=== PATIENT | female | born 1985 | race Caucasian/White ===

== ENCOUNTER 2022-07-11 13:15 | Outpatient (CLI) | payer OTHER, SELFPAY ==
[2022-07-11 15:37] LABS: Chloride* 104 mmol/L (96-114)
[2022-07-11 15:38] LABS: Albumin* 4.4 g/dL (3.3-5.0)
[2022-07-11 15:39] LABS: Sodium* 139 mmol/L (135-149); Vitamin D 25 Hydroxy* 37 ng/mL (30-80)
[2022-07-11 15:41] LABS: Alkaline Phosphatase* 65 U/L (40-150); Aspartate Amino Transferase* 19 U/L (12-35); Bilirubin Total* 0.7 mg/dL (0.1-1.5); Blood Urea Nitrogen* 11 mg/dL (5-24); Carbon Dioxide* 28 mmol/L (20-32); Cholesterol* 158 mg/dL (90-199); Creatinine* 0.6 mg/dL (0.5-1.5); Estimated Glomerular Filt Rate 118 ml/min; Glucose* 91 mg/dL (60-115); Total Protein* 7.1 g/dL (6.0-8.3)
[2022-07-11 15:42] LABS: Alanine Aminotransferase* 11 U/L (4-35); Calcium* 9.3 mg/dL (8.4-10.6); HDL Cholesterol* 55 mg/dL (>=50); LDL Cholesterol Calculated 80 mg/dL (<100); Magnesium* 1.9 mg/dL (1.5-2.6); Triglycerides* 116 mg/dL (40-149)
[2022-07-11 16:15] LABS: Vitamin B12* 389 pg/mL (243-894)
== END 2022-07-11 13:16 | disposition home or self-care (01) ==
PROVIDERS: PCP Physician Assistant Medical; Visit Provider Family Medicine
DX: Z00.00 Encounter for general adult medical examination without abnormal findings (principal); F32.A Depression, unspecified; R53.83 Other fatigue; I10 Essential (primary) hypertension
CPT/HCPCS: 80053; 80061; 82306; 82607; 83735; 84443

== ENCOUNTER 2024-05-26 11:40 | Outpatient (CLI) | payer BC, SELFPAY ==
--- OUTSIDE RECORDS SUMMARY | 2024-05-26 11:42 | XMS_ITS | Clinical Summary ---
Author Organization [facility] Address [place], [place] [address] Care Team Providers Care Fruit Rancher Name Role Phone [facility] Primary Care Provider Unavailabl e Allergies No known active allergies Medications Medication Sig Dispensed Refills Start Date End Date Status MULTIPLE VITAMINS TAB take 1 tablet by oral route once daily with food 0 01/16/2007 Active ALDARA 5 % TOPICAL PACKET apply to affected area(s) by topical route3- 5 times per week 1 tube 0 01/16/2007 Active NUVARING 0.12 MG -0.015 MG/24 HR VAGINALIndications:Othe r general counseling and advice for contraceptive management Apply 1 ring, leave in for 3 weeks then remove 9 rings 3 01/18/2008 Active Active Problems Problem Noted Date Diagnosed Date CONTRACEPTIVE MANAGEMENT 04/13/2002 ACNE NEC 10/19/2001 ALLERGIES 10/19/2001 Immunizations Name Administration Dates Next Due Hepatitis B (Peds) 01/15/2000,12/08/1999 MMR 12/22/1996 Meningococcal Vaccine 01/19/2003 Oral Polio Vaccine 09/22/1989 Td (Age >=7 Years) 01/26/1996 Tuberculin (PPD) 03/29/2005 Family History Medical History Relation Name Comments Heart Disease Maternal Grandmother Other Maternal Grandmother bladder cancer, DVTs Genetic Other GM: bladder CA~ GP: CAD~GP: aneurysm, brain/GM: bladder CA~GP: CAD~GP: aneurysm, brain~arthritis/father A\T\W~mother A\T\W~brother A\T\W~GM: bladder CA, HTN~GP: CAD< CA uncertain type~GP: aneurysm, brain~maternal aunt thyroid abnormalities~no DM~arthritis/father A\T\W~mother A\T\W~brother A\T\W~GM: bladder CA, HTN~GP: CAD< CA uncertain type~GP: aneurysm, brain~maternal aunt thyroid abnormalities~no DM~arthritis~GM- brain aneurysm Other Paternal Grandmother Relation Name Status Comments Father Alive Maternal Grandfather Maternal Grandmother Mother Alive Other Paternal Grandfather Paternal Grandmother Social History Tobacco Use Types Packs/Day Years Used Date Smoking Tobacco: Never Alcohol Use Standard Drinks/Week Comments Yes 0 (1 standard drink = 0.6 oz pur e alcohol) 7-8 drinks /wk Sex and Gender Information Value Date Recorded Sex Assigned at Not on file Gender Identity Not on file Sexual Orientation Not on file Obstetrics History Para Term AB IAB SAB Ectopic Multiple Livin g Live Births 0 0 0 0 0 0 0 0 0 Last Filed Vital Signs Vital Sign Reading Time Taken Comments Blood Pressure 110/64 04/12/2010 2:16 PM CDT Pulse 88 04/18/2006 1:40 PM CDT Temperature 36.4 C (97.6 F) 02/17/2007 2:45 PM CDT Respiratory Rate 16 11/15/2004 12:00 AM CDT Oxygen Saturation - - Inhaled Oxygen Concentration - - Weight 60.3 kg (133 lb) 04/12/2010 2:16 PM CDT Height 166.4 cm (5' 5.5) 01/16/2007 3:30 PM CDT Body Mass Index 21.8 01/16/2007 3:30 PM CDT Plan of Treatment Health Maintenance Due Date Last Done Comments Tdap 1995 Depression screening for age 12+ 1996 HIV for age 15-65 1999 BMI (ht and wt on same day) for age 18+ 2002 Hepatitis C screening for age 18-79 2002 Tetanus booster 01/25/2006 01/26/1996 Pap test for age 21-65 02/16/2021 8, 02/16/2018, 01/29/2017, Additional history exists COVID-19 vaccine series (2023- season) 2024 Influenza for age 9-49 02/22/2024 Pneumococcal series for age 6-64 Aged Out No longer eligible based on patient's age to complete this topic Procedures Procedure Name Priority Date/Time Associated Diagnosis Comments MOLD CHECKER THIN PREP PAP SCREEN IMAGED Routine 02/16/2018 5:30 PM CDT from Last 3 Months or Most Recently Relevant to Health Maintenance Results * MOLD CHECKER THIN PREP PAP SCREEN IMAGED (02/16/2018 5:30 PM CDT) Case Report Gynecologic Cytology Report Case: [id number] Authorizing Provider: Anita Dwyer NP Collected: 02/16/2018 1730 First Screen: Krysten Fontenot Received: 02/19/2018 1146 Specimen: MOLD CHECKER ThinPrep Vial Screening, Cervical/Vaginal 03/03/2018 1:53 PM CDT [facility] INTERPRETATION/ RESULT NEGATIVE FOR INTRAEPITHELIAL LESION OR MALIGNANCY (NIL) (none) 03/03/2018 1:53 PM CDT [facility] IMEN ADEQUACY Satisfactory for evaluation Endocervical component present 03/03/2018 1:53 PM CDT [facility] HPV REQUEST HPV and PAP 03/03/2018 1:53 PM CDT [facility] Date of LMP 01/26/2018 03/03/2018 1:53 PM CDT [facility] Last Pap Date 02/16/2017 03/03/2018 1:53 PM CDT [facility] Last Pap Result NIL 8 1:53 PM CDT [facility] Comment:neg hpv Automated Review Successful 03/03/2018 1:53 PM CDT [facility] Comment:Specimen processed s uccessfully by automated electronic systems security assessment device, Thin[employer] Imaging System, [email or web address] ANCILLARY TESTING MOLD CHECKER HPV Ordered, Please see separate report 03/03/2018 1:53 PM CDT [facility] Note The pap test is a screening technique, not a diagnostic procedure. It is used primarily to screen for squamous cancers and precursor lesions. Published studies have shown that it is subject to both false negative and false positive results. The pap test should not be used as the sole means to diagnose or exclude pre-malignant and malignant lesions. Cytology is screened and interpreted at [facility], Central Laboratory - [address], [place] [address] [facility] - [address] [place] [address]; [place] [address] and [facility] - [address]; [place] [address] and [facility] [address]; [place] [address] 03/03/2018 1:53 PM CDT [facility] Other (Cervical/Vagina l) 02/16/2018 5:30 PM CDT 02/19/2018 11:46 AM CDT Anita Dwyer NP PATHOLOGY/CYTOLOGY [facility] [address] [place] [address], [place] from Last 3 Months or Most Recently Relevant to Health Maintenance Care Teams Fruit Rancher Relationship Specialty Start Date End Date Gabriele Malik PCP - General 09/29/17
== END 2024-05-26 11:41 | disposition home or self-care (01) ==
PROVIDERS: PCP Physician Assistant Medical; Visit Provider Obstetrics & Gynecology
DX: R55 Syncope and collapse (principal); R63.5 Abnormal weight gain
CPT/HCPCS: 80048; 84443